=== PATIENT | male | born 1995 | race Caucasian/White ===

== ENCOUNTER 2021-02-04 11:27 | Emergency (ER) | payer OTHER ==
[~2021-02-04 11:27] MED LIST: IBUPROFEN600 MG PO; IBUPROFEN800 MG PO; NORFLEX 100 MG100 MG PO; PREDNISONE 20 M20 MG GT; PREDNISONE 50 M50 MG PO; VENTOLIN HFA 66.7 GM INH; ZANAFLEX4 MG PO; ZOFRAN4 MG PO
[2021-02-04] MEDS ORDERED: NAPROSYN500 MG PO (13:17)
== END 2021-02-04 13:35 | disposition home or self-care (01) ==
LOC: ER1 11:27
DX: S93.402A Sprain of unspecified ligament of left ankle, initial encounter (principal); F17.200 Nicotine dependence, unspecified, uncomplicated; V16.2XXA Unspecified pedal cyclist injured in collision with other nonmotor vehicle in nontraffic accident, initial encounter; Y92.410 Unspecified street and highway as the place of occurrence of the external cause
CPT/HCPCS: 73610; 99283